=== PATIENT | female | born 1950 | race Caucasian/White ===

== ENCOUNTER → 2017-12-09 | Emergency (ER) | payer OTHER ==
[~2017-12-09] VITALS: Ht 157.5 cm; Wt 83.5 kg
[~2017-12-09] MED LIST: ASPIR 8181 MG; COREG CR10 MG; HUMALOG100 UNIT/1; LEVO-T50 MCG; LISINOPRIL20 MG; SIMVASTATIN40 MG
== END | disposition left against medical advice (07) ==
LOC: ER 16:17
DX: Z53.20 Procedure and treatment not carried out because of patient's decision for unspecified reasons (principal)